=== PATIENT | female | born 2000 | race Caucasian/White ===

== ENCOUNTER 2019-07-30 19:31 | Emergency (ER) | payer BC ==
[~2019-07-30] VITALS: Ht 165.1 cm; Wt 59.0 kg
--- NOTE | 2019-07-30 19:40 | NUR ---
ED Nurse Note: pt presents to ED c/o lower back pain that she rates a 7/10. per pt she has had chronic back px for 2 years that she sees a specialist for but in October she had a "complete muscle spasm" that was extremely painful and that this pain feels like that pain which is 10/10 at it's worst. pt states that this pain is different from her regular chronic back pain and that it affects her movement and walking. pt states she took her prescribed muscle relaxers without relief of pain. pt denies any injury to the area and denies any other symptoms at this time.
[2019-07-30 19:45] VITALS: BP 120/78
[2019-07-30] MEDS ORDERED: traMADol 50mg tab ORAL ONE (20:15)
[2019-07-30] MEDS ORDERED: Ketorolac 30mg Inj IM ONE (20:15)
[2019-07-30 20:24] LABS: APPEARANCE,URINE CLOUDY; BILIRUBIN, URINE NEGATIVE (NEGATIVE); COLOR,URINE PALE YELLOW; GLUCOSE, URINE (UA) NEGATIVE (NEGATIVE); KETONES,URINE NEGATIVE (NEGATIVE); LEUKOCYTE ESTERASE ,URINE 2+ (NEGATIVE); NITRITE,URINE NEGATIVE (NEGATIVE); PH,URINE 7 (4.5-8.0); PROTEIN,URINE NEGATIVE (NEGATIVE); UROBILINOGEN,URINE NORMAL MG/DL (0.0-1.0)
--- NOTE | 2019-07-30 20:36 | Emergency Room Report ---
History of Present Illness General Chief Complaint: Lower Back Pain or Injury Source: Patient Present Illness HPI 19-year-old female presents to the emergency department complaining of exacerbation of her chronic low back pain x3 days. Patient reports that typically her pain resolves with taking diclofenac and Robaxin. Patient states that she is almost out of her Robaxin but she has not noticed much improvement. Patient denies appreciable trauma or fall. Patient reports stiffness in the lower sacral and lumbar area. Patient denies fevers, chills, recent spinal procedures or history of cancer. Patient states that she has been sitting longer than usual as she has been starting for an exam that she has coming up. She reports feeling inflammation in the low back muscles. She reports on occasion getting radiating right sided shooting pain in to her buttock. She denies abdominal pain, urinary frequency, urgency, hematuria, nausea or vomiting. Patient reports that she is due for her period It has not come yet. She denies suspicion of . Pt. had tried heat pads as well without relief. Denies numbness tingling or loss of sensation or gross motor movements of the extremities, incontinence of bowel or bladder. Denies CP, Palpitations, LOC, AMS, dizziness, Changes in Vision, weakness or a sudden severe headache. Allergies: Coded Allergies: No Known Allergies (Unverified , 07/30/19) Patient History Past Medical History: see triage record Past Surgical History: none Pertinent Family History: none Last Menstrual Period: 06/2019 Now: No : 1 Para: 0 Reviewed Nursing Documentation: PMH: Agreed; PSxH: Agreed Review of Systems All Other Systems: negative except mentioned in HPI Physical Exam Vital Signs Date Time Temp Pulse Resp B/P (MAP) Pulse Ox O2 Delivery O2 Flow Rate FiO2 07/30/19 19:33 98.2 68 16 120/78 (92) 97 Room Air Sp02 EP Interpretation: reviewed, normal General Appearance: no apparent distress, alert, GCS 15, non-toxic Head: normocephalic, atraumatic Eyes: bilateral eye normal inspection, bilateral eye PERRL ENT: hearing grossly normal, normal voice Neck: full range of motion Respiratory: lungs clear, normal breath sounds, speaking full sentences Cardiovascular #1: regular rate, rhythm Gastrointestinal: normal bowel sounds, non tender, soft Genitourinary: normal inspection, no CVA tenderness Musculoskeletal: gait/station normal, normal range of motion - with pain at full extension or flexion past the 40* point. , tender - Moderate Tenderness to palpation to paraspinal muscles of the lumbar and sacral regions with diffuse midline tenderness.NO localized spinous process ttp, no step-offs or obvious deformities. Pt. is ambulatory with out assistance and able to flex and extend the back with pain. Neurologic: alert, oriented x3, responsive, motor strength/tone normal, sensory intact, normal gait, speech normal, grossly normal Psychiatric: judgement/insight normal Skin: no rash, normal color Medical Decision Making PA Attestation Dr. Fonseca is my supervising Physician whom patient management has been discussed with. Diagnostic Impression: Primary Impression: Low back pain Qualified Codes: M54.41 - Lumbago with sciatica, right side ER Course 19-year-old female presents to the emergency department complaining of exacerbation of her chronic low back pain x3 days. Patient reports that typically her pain resolves with taking diclofenac and Robaxin. Patient states that she is almost out of her Robaxin but she has not noticed much improvement. Patient denies appreciable trauma or fall. Patient reports stiffness in the lower sacral and lumbar area. Patient denies fevers, chills, recent spinal procedures or history of cancer. Patient states that she has been sitting longer than usual as she has been starting for an exam that she has coming up. She reports feeling inflammation in the low back muscles. She reports on occasion getting radiating right sided shooting pain in to her buttock. She denies abdominal pain, urinary frequency, urgency, hematuria, nausea or vomiting. Patient reports that she is due for her period It has not come yet. She denies suspicion of . Pt. had tried heat pads as well without relief. Denies numbness tingling or loss of sensation or gross motor movements of the extremities, incontinence of bowel or bladder. Denies CP, Palpitations, LOC, AMS, dizziness, Changes in Vision, weakness or a sudden severe headache. Ddx considered: epidural abscess, fracture, sprain/strain, meningitis, spinal chord injury, sciatica, cauda equina, Pyelonephritis, renal calculi just to name a few. Vital signs reviewed and are WNL during ED visit. Pt. is afebrile with no signs of infection No new symptoms, and denies recent trauma. No saddle anesthesia noted, Pt. denies incontinence Neurovascular is intact ROM is limited due to pain Moderate Tenderness to palpation to paraspinal muscles of the lumbar and sacral regions with diffuse midline tenderness.NO localized spinous process ttp, no step-offs or obvious deformities. Pt. is ambulatory with out assistance and able to flex and extend the back with pain. ORDERS: -Urine Hcg: Negative -UA: Most consistent with contamination INTERVENTIONS: - 20mg IM Toradol -Tramadol PO D/W Pt. that for further pain management is it recommended to consult PCP or a Chronic Pain management doctor. A provider who can safely prescribe controlled substances with close follow up. DISCHARGE: At this time pt. is stable for d/c to home. Will provide printed patient care instructions, and any necessary prescriptions. Care plan and follow up instructions have been discussed with the patient prior to discharge. Labs Test 07/30/19 20:09 Urine Color Pale yellow Urine Appearance Cloudy Urine pH 7 (4.5-8.0) Urine Specific [place] 1.015 (1.005-1.035) Urine Protein Negative (NEGATIVE) Urine Glucose (UA) Negative (NEGATIVE) Urine Ketones Negative (NEGATIVE) Urine Blood 2+ (NEGATIVE) Urine Nitrite Negative (NEGATIVE) Urine Bilirubin Negative (NEGATIVE) Urine Urobilinogen Normal MG/DL (0.0-1.0) Urine Leukocyte Esterase 2+ (NEGATIVE) Urine RBC 2-4 /HPF (0 - 2) Urine WBC 10-15 /HPF (0 - 2) Urine Squamous Epithelial Cells Many /LPF (NONE/OCC) Urine Bacteria Few /HPF (NONE) Urine HCG, Qualitative Negative (NEGATIVE) Last Vital Signs Date Time Temp Pulse Resp B/P (MAP) Pulse Ox O2 Delivery O2 Flow Rate FiO2 07/30/19 19:45 98.2 16 120/78 97 Room Air 07/30/19 19:33 68 Disposition: HOME, SELF-CARE Condition: Stable Scripts Methocarbamol* (ROBAXIN-500*) 500 Mg Tablet 500 MG ORAL TID, #10 TAB 0 Refills Prov: Maritza Abraham 07/30/19 Tramadol Hcl* (ULTRAM*) 50 Mg Tablet 50 MG ORAL Q6H PRN for For Pain, #10 TAB 0 Refills Prov: Maritza Abraham 07/30/19 Lidocaine Patch* (Lidoderm Patch*) 1 Each Adh..patch 1 PATCH TOPIC DAILY, #30 PATCH 0 Refills Patch(es) may remain in place for up to 12 hours in any 24-hour period. Prov: Maritza Abraham 07/30/19 Departure Forms: Return to School Return to School On: Aug 03, 2019 School Release Restrictions: None Other School Release Restrictions: May return Sooner if Symptoms have resolved. Return to Full Activity: Aug 03, 2019 Patient Instructions: Back Pain, Adult Additional Instructions: Take medications as directed. Follow up with a Primary Care Provider in 3-5 days, even if your symptoms have resolved. --Please review list of primary care clinics, if you do not already have a primary care provider Return sooner to ED if new symptoms occur, or current symptoms become worse. Do not drink alcohol, drive, or operate heavy machinery while taking Tramadol as this may cause drowsiness. - Please note that this Emergency Department Report was dictated using [employer] man technology software, occasionally this can lead to erroneous entry secondary to interpretation by the dictation equipment. Maritza Abraham Jul 30, 2019 20:36
[2019-07-30] MEDS ORDERED: ROBAXIN-500MG ORAL (20:37)
[2019-07-30] MEDS ORDERED: LIDODERM700 M1 TOPIC (20:37)
[2019-07-30] MEDS ORDERED: TRAMADOL HCL50 MG ORAL (20:37)
--- NOTE | 2019-07-30 20:42 | NUR ---
ED Nurse Note: pt verbalized relief of pain, she rates it 3/10 and states she is able to walk with a steady gait again.
[2019-07-30 20:45] VITALS: BP 123/75
--- NOTE | 2019-07-30 20:47 | NUR ---
ER DISCHARGE NOTE: Patient is cleared to be discharged per ERMD, pt is aox4, on room air, with stable vital signs. pt was given dc and prescription instructions, pt was able to verbalize understanding, pt id band removed without complications. pt is able to ambulate with steady gait. pt took all belongings.
== END 2019-07-30 20:45 | disposition home or self-care (01) ==
LOC: EMR 20:35
DX: M54.41 Lumbago with sciatica, right side (principal)
CPT/HCPCS: 81003; 81025; 87086; 96372; 99283; J1885